=== PATIENT | female | born 1995 ===

== ENCOUNTER 2016-09-16 06:14 | Inpatient (IN) ==
[2016-09-16] MEDS ORDERED: ONDANSETRON 4 MG/2 ML VIAL IV PRN ×2 (06:35→08:59)
[2016-09-16] MEDS ORDERED: MEPERIDINE 50 MG/1 ML VIAL IV PRN (06:35)
[2016-09-16] MEDS ORDERED: MAGNESIUM SULF RIDER 4 GM in PREMIX 1 EACH IV ONE (06:40)
[2016-09-16] MEDS ORDERED: MAGNESIUM SULF RIDER 100 ML IV ONE (06:43)
[2016-09-16] MEDS ORDERED: BETAMETH SODIUM PHOS/ACETATE 30 MG/5 ML VIAL ONE (06:44)
[2016-09-16] MEDS ORDERED: BETAMETH SODIUM PHOS/ACETATE 30 MG/5 ML VIAL IM SCH (07:00)
[2016-09-16] MEDS ORDERED: MAGNESIUM SULF DRIP 40 GM/1,000 ML ML IV SCH (07:00)
[2016-09-16] MEDS ORDERED: CITRIC ACID/SODIUM CITRATE 30 ML UDCUP PO ONE (07:00)
[2016-09-16] MEDS ORDERED: AMPICILLIN INJ 2,000 MG in SODIUM CHLORIDE 0.9% 100 ML IV SCH (07:00)
[2016-09-16] MEDS ORDERED: FAMOTIDINE 20 MG/2 ML VIAL IV ONE (07:00)
[2016-09-16] MEDS ORDERED: LACTATED RINGERS 1,000 ML IV SCH ×2 (07:00→09:00)
[2016-09-16] MEDS ORDERED: CITRIC ACID/SODIUM CITRATE 30 ML UDCUP ONE (07:02)
[2016-09-16] MEDS ORDERED: OXYTOCIN/LR 20 UNIT/1,000 ML BAG IV ONE ×2 (07:03→08:59)
[2016-09-16] MEDS ORDERED: SODIUM CHLORIDE 0.9% 100 ML IV ONE (07:03)
[2016-09-16 07:17] LABS: Basophils % 0.1 % (0.0-0.8); Eosinophils % 0.1 % (0.00-10.9); Hematocrit 26.6 VOL% (35.7-47.0); Hemoglobin 8.3 GM/DL (12.0-16.0); Immature Granulocytes % 0.6 %; Immature Granulocytes Absolute 0.08 #; Lymphocytes # 1.6 10*3/uL (1.4-4.0); Lymphocytes % 11.7 % (21.3-54.2); Mean Corpuscular HGB Conc 31.2 GM/DL (32-36); Mean Corpuscular Hemoglobin 25 PG (27-34); Mean Corpuscular Volume 79.4 FL (87-102); Mean Platelet Volume 10.1 FL (9.6-12.0); Monocytes # 0.9 10*3/uL (0.11-0.8); Monocytes % 6.5 % (1.7-12.7); NRBC # 0.04 10*3/uL; Platelet Count 271 T/CUMM (130-400); Red Blood Count 3.35 MC/CUMM (3.8-5.5); Red Cell Distribution Width 17.6 % (9.3-17.3); White Blood Count 13.5 T/CUMM (4-12)
--- NOTE | 2016-09-16 07:24 | OB/GYN History & Physical ---
History of Present Illness Chief complaint: Labor History of present illness: Ms. Woodruff is a 21 year old female at 31 3/7 weeks with twin gestation who presented to L&D this morning in labor. 7 cm on admission. Given a dose of BMTZ and started Magnesium. Now 8-9 cm. Twins vtx/breech. R/B /A to primary section reviewed. Pt verbalzied understanding and is willing to proceed. Denies medical or surgical history. Home Medications Medication Instructions Recorded Confirmed Type Vit No.124/Iron/Folic 1 tablet PO DAILY 08/27/16 09/16/16 History [ Vitamin Tablet] Allergies Allergy/AdvReac Type Severity Reaction Status Date / Time peanut Allergy Severe ANAPHYLAXIS Verified 08/27/16 16:38 Medical,Surgical,& Family Hx - Medical History Psychological: No history of: Anxiety Disorders, ADHD, Behavior Problems, Bipolar Disorder, Depression, Previous Suicide Attempt, Psychiatric/Substance Abuse Tx, Schizophrenia, Violent Behavior, Psychiatric Problems Musculoskeletal: No history of: Amputation Hematology: History of: Anemia (after delivery) Reproductive: No history of: Ectopic , Complication - Surgical History Thoracic Surgeries: Patient denies;: Lobectomy Neurologic Surgeries: Patient denies: Neurologic Surgery HEENT Surgeries: Patient denies: Eye Surgery, Tonsilectomy & Adenoidectomy Reproductive Surgeries: Patient denies;: Section, Gynecologic Surgery - Family History Family History: Reports;: Family Cancer (mgm), Family Diabetes (mother), Family Hypertension (grandmother), Family Stroke (mgm) Denies;: Family Anesthesia Reaction, Family Psychiatric Problems, Additional Family History - Social History Smoking Status: Never smoker Frequency of Alcohol Use: None Type of Drug Use: None 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 - Constitutional Vitals: Vital Signs Temp Pulse Resp BP Pulse Ox 09/16/16 07:18 99.0 F 118 H 22 128/70 100 09/16/16 06:52 97.5 F L 94 H 22 118/67 99 General appearance: normal weight, no acute distress - Head Head exam: Present: normal inspection, normocephalic - Eye Eye exam: Present: EOMI Pupils: Present: MUNA - Respiratory Respiratory exam: Present: clear to auscultation bilaterally - Cardiovascular Cardiovascular exam: Present: regular rate and rhythm Assessment and Plan (1) 31 weeks gestation of Status: Acute Current Visit: Yes (2) labor in third trimester Status: Acute Assessment and plan: Proceed with primary section Current Visit: Yes (3) Twin gestation in third trimester Status: Acute Current Visit: Yes Results - Labs CBC & BMP: 09/16/16 06:58
[2016-09-16] MEDS ORDERED: PHENYLEPHRINE 1 MG/10 ML SYRINGE IV ONE (07:56)
[2016-09-16] MEDS ORDERED: ONDANSETRON 4 MG/2 ML VIAL ONE (07:56)
[2016-09-16 07:58] LABS: Albumin 2.1 G/DL (3.4-5.0); Bilirubin,Total 0.9 MG/DL (0.2-1.0); Calcium 8.3 MG/DL (8.5-10.1); Osmolality,Calculated 273.5 MOS/KG (273-304); Potassium 3.8 MMOL/L (3.5-5.1); Total Protein 5.4 G/DL (6.4-8.3)
[2016-09-16 07:59] LABS: Apearance,Urine CLEAR (Clear); Bilirubin,Urine Negative (Negative); Blood, Urine Small mg/dL (Negative); Glucose,Urine (UA) Negative (Negative); Ketones,Urine Negative (Negative); Mucus,Urine Occasional /LPF (Occasional); Nitrite,Urine Negative (Negative); Protein,Urine Negative; RBC,Urine 37 /HPF (0-4); Squamous Epithelial Cell,Urine Occasional /HPF (0-10); Urine Color Yellow (Yellow); Urine Specific Gravity 1.012 (1.001-1.035); WBC,Urine 1 /HPF (0-6)
[2016-09-16] MEDS ORDERED: RHO(D) IMMUNE GLOBULIN 300 MCG SYRINGE IM ONE (08:59)
[2016-09-16] MEDS ORDERED: SODIUM CHLORIDE 0.9% 250 ML IV PRN (08:59)
[2016-09-16] MEDS ORDERED: diphenhydrAMINE CAP 50 MG CAPSULE PO ONE (08:59)
--- NOTE | 2016-09-16 09:01 | Anesthesia Post-Op ---
Anesthesia Post OP - Post Ansesthetic Evaluation Patient seen in post op: Yes Resp: within normal limits CV: within normal limits Mental: within normal limits Temp: within normal limits [id number]: within normal limits Nausea and Vomiting: within normal limits Pain: within normal limits
[2016-09-16 09:06] LABS: Cord Arterial Blood HCO3 19.2 MMOL/L
[2016-09-16] MEDS ORDERED: MORPHINE 10 MG/10 ML VIAL ONE (09:06)
[2016-09-16] MEDS ORDERED: fentaNYL 100 MCG/2 ML VIAL ONE (09:06)
[2016-09-16 09:08] LABS: Cord Venous Blood HCO3 20.7 MMOL/L; Cord Venous Blood PO2 45.6
[2016-09-16 09:11] LABS: Cord Arterial Blood HCO3 25.1 MMOL/L
--- NOTE | 2016-09-16 09:11 | Operative Note ---
Pre-op diagnosis: 1. 31 3/7 wks 2. Twin gestation 3. labor Post-op diagnosis: same Procedure: PRIMARY C SECTION Pt was taken to the OR where spinal anesthesia was placed and adequate. Prepped and draped in standard fashion with calderon in her bladder. Incision made 2 FBs above symphysis pubis and carried down to the underlying fascia. Fascia incised in the midline and the incision extended to either side with Rodriguez scissors. Yas clamps placed superiorly and rectus dissected away. Similar procedure inferiorly. Midline entered sharply with Metzenbaum scissors and incision extended bluntly. Geoffrey retractor placed. Bladder flap created sharply. Uterus entered with knife and incision extended bluntly and sharply. Membranes ruptured on Twin A. Delivered vertex. Cord clamped and cut. Handed off to Freight Clerk. Membranes of Twin B ruptured. Delivered in vertex position and handed off to Freight Clerk. Placentas delivered. Uterus cleared of clots and debris. Uterus then closed in 2 layers with 0 vicryl suture, the first running locked, the second imbricated. Normal uterus tubes and ovaries. Twin A 4lbs 7oz APGARS 8/9, Twin B 4lbs 3oz APGARS 8/8. Fascia closed with 2 vicryl sutures from either side to midline. Skin closed with a 4 monocryl. Sponge lap and needle counts correct x 2. Taken to recovery in stable condition. Anesthesia: regional Surgeon / Physician: Radha Baltazar Fireproof Door Maker: Lashawn Omer Estimated blood loss: other (700 CC) Specimens: other (Placenta) Condition: stable Disposition: PACU Results - Labs CBC & BMP: 09/17/16 01:43 09/16/16 06:58 Discharge Plan - Discharge Medications No Action Vit No.124/Iron/Folic [ Vitamin Tablet] 1 tablet PO DAILY - Follow Up or Referral - Forms/Instructions
[2016-09-16 09:12] LABS: Cord Venous Blood HCO3 19.7 MMOL/L; Cord Venous Blood PCO2 49.8 MMHG; Cord Venous Blood PO2 17.7
[2016-09-16] MEDS ORDERED: HYDROmorphone 2 MG/1 ML VIAL ONE (09:36)
[2016-09-16] MEDS: IBUPROFEN 800 MG TABLET PO SCH (17:11)
[2016-09-16] MEDS: HYDROmorphone 2 MG/1 ML VIAL IV PRN ×2 (17:45→21:40)
[2016-09-16] MEDS: DOCUSATE SODIUM 100 MG CAPSULE PO SCH (20:50)
[2016-09-17] MEDS: IBUPROFEN 800 MG TABLET PO SCH ×3 (01:41→17:57)
[2016-09-17 01:56] LABS: Basophils % 0.1 % (0.0-0.8); Hematocrit 25.4 VOL% (35.7-47.0); Hemoglobin 8.1 GM/DL (12.0-16.0); Immature Granulocytes % 0.8 %; Immature Granulocytes Absolute 0.19 #; Lymphocytes # 1.5 10*3/uL (1.4-4.0); Lymphocytes % 6.3 % (21.3-54.2); Mean Corpuscular HGB Conc 31.9 GM/DL (32-36); Mean Corpuscular Hemoglobin 25 PG (27-34); Mean Corpuscular Volume 79.6 FL (87-102); Mean Platelet Volume 10.5 FL (9.6-12.0); Monocytes # 1.1 10*3/uL (0.11-0.8); Monocytes % 4.9 % (1.7-12.7); NRBC # 0.04 10*3/uL; Neutrophils # 20.1 10*3/uL (1.4-7.4); Neutrophils % 87.9 % (38.7-73.9); Platelet Count 217 T/CUMM (130-400); Red Blood Count 3.19 MC/CUMM (3.8-5.5); Red Cell Distribution Width 17.2 % (9.3-17.3); White Blood Count 22.9 T/CUMM (4-12)
[2016-09-17 02:36] LABS: Anisocytosis 1+; Band Neutrophils 4 % (0-10); Lymphocytes 6 % (20-55); Platelet Estimate Normal; Segmented Neutrophils 88 % (50-85); Total Cells Counted 100
[2016-09-17] MEDS: MULTIVITAMIN (PRENATAL) TABLET PO SCH (08:19)
[2016-09-17] MEDS: FERROUS SULFATE 325 MG TABLET PO SCH ×2 (08:19→21:18)
[2016-09-17] MEDS: DOCUSATE SODIUM 100 MG CAPSULE PO SCH ×2 (08:19→21:14)
--- NOTE | 2016-09-17 10:27 | OB/GYN Progress Note ---
Assessment and Plan (1) Status post primary low transverse section Status: Acute Assessment and plan: Initiate routine postop orders. 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 Exam IT NETWORK ARCHITECT - Constitutional Vitals: Vital Signs Temp Pulse Pulse Resp BP BP Pulse Ox 09/17/16 07:26 97.3 F L 63 18 92/48 09/17/16 04:00 97.4 F L 62 22 101/60 09/17/16 00:00 96.9 F L 73 20 106/66 09/16/16 19:30 97.1 F L 80 20 114/65 09/16/16 18:15 97.9 F 78 16 107/46 98 09/16/16 17:02 97.2 F L 74 18 107/66 98 09/16/16 16:02 97.9 F 74 18 115/65 98 09/16/16 16:00 97.9 F 74 18 115/65 09/16/16 15:32 97.9 F 74 20 115/74 98 09/16/16 15:27 97 F L 75 20 115/70 99 09/16/16 15:22 98 F 79 20 122/63 98 09/16/16 15:13 97.9 F 71 20 117/67 97 09/16/16 14:30 98 F 77 20 110/69 09/16/16 11:47 97.5 F L 83 18 120/61 Pulse Ox 09/17/16 07:26 98 09/17/16 04:00 99 09/17/16 00:00 97 09/16/16 19:30 96 09/16/16 18:15 09/16/16 17:02 09/16/16 16:02 09/16/16 16:00 98 09/16/16 15:32 09/16/16 15:27 09/16/16 15:22 09/16/16 15:13 09/16/16 14:30 98 09/16/16 11:47 General appearance: no acute distress - Antepartum / Post Post Exam Breast: bilateral: normal Abdomen obstetrics: Present: bowel sounds normal Vagina: Present: normal moisture, discharge (Right lochia rubra) Uterus exam: Present: enlarged - Gyencological / Post Surgical Post Surgical Exam Lungs: bilateral: normal Chest: Normal S1, Normal S2 Extremities IT NETWORK ARCHITECT: Present: normal Abdomen obstetrics progress note: Present: normal appearance Incision OB: Present: normal, intact - Head Head exam: Present: normal inspection - Respiratory Respiratory exam: Present: clear to auscultation bilaterally - Cardiovascular Cardiovascular exam: Present: regular rate and rhythm - GI/Abdominal GI/Abdominal exam: Present: normal bowel sounds, soft - Extremities Exam Extremities exam: Present: normal inspection - Back Exam Back exam: Present: normal inspection - Neurological Exam Neurological exam: Present: alert, oriented X3 - Psychiatric Psychiatric exam: Present: normal affect, normal mood - Skin Skin exam: Present: normal color, warm Results - Labs CBC & BMP: 09/17/16 01:43 09/16/16 06:58
[2016-09-18] MEDS ORDERED: oxyCODONE/ACETAMINOPHEN 5-325 MG TABLET ONE (07:48)
[2016-09-18] MEDS: IBUPROFEN 800 MG TABLET PO PRN ×2 (07:50→17:50)
[2016-09-18] MEDS: FERROUS SULFATE 325 MG TABLET PO SCH ×2 (07:50→21:33)
[2016-09-18] MEDS: DOCUSATE SODIUM 100 MG CAPSULE PO SCH ×2 (07:50→21:33)
[2016-09-18] MEDS: MULTIVITAMIN (PRENATAL) TABLET PO SCH (07:50)
[2016-09-18] MEDS: oxyCODONE/ACETAMINOPHEN 5-325 MG TABLET PO PRN ×3 (07:50→21:40)
--- NOTE | 2016-09-18 09:52 | OB/GYN Progress Note ---
Assessment and Plan (1) Status post primary low transverse section Status: Acute Assessment and plan: Initiate routine postop orders. 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 Exam FINISH CARPENTER - Constitutional Vitals: Vital Signs Temp Pulse Resp BP Pulse Ox 09/18/16 07:30 97 F L 69 18 101/51 98 09/18/16 05:45 20 09/18/16 03:20 98.6 F 84 20 119/69 99 09/18/16 02:00 18 09/18/16 00:00 96.9 F L 76 20 96/62 99 09/17/16 19:30 97.0 F L 73 18 97/55 97 09/17/16 15:49 97.3 F L 78 20 104/60 98 09/17/16 11:53 97.4 F L 84 20 105/65 98 General appearance: no acute distress - Antepartum / Post Post Exam Breast: bilateral: normal Abdomen obstetrics: Present: bowel sounds normal Vagina: Present: normal moisture, discharge (Light lochia rubra) Uterus exam: Present: enlarged Anus/Rectum: Present: normal perianal skin - Head Head exam: Present: normal inspection - Respiratory Respiratory exam: Present: clear to auscultation bilaterally - Cardiovascular Cardiovascular exam: Present: regular rate and rhythm - GI/Abdominal GI/Abdominal exam: Present: normal bowel sounds, soft - Extremities Exam Extremities exam: Present: normal inspection - Back Exam Back exam: Present: normal inspection - Neurological Exam Neurological exam: Present: alert, oriented X3 - Psychiatric Psychiatric exam: Present: normal affect, normal mood - Skin Skin exam: Present: normal color, warm Results - Labs CBC & BMP: 09/17/16 01:43 09/16/16 06:58
[2016-09-18] MEDS: MAGNESIUM HYDROXIDE SUSP 30 ML UDCUP PO PRN (21:33)
[2016-09-18] MEDS: SIMETHICONE CHEW 80 MG TABLET PO PRN (21:33)
[2016-09-19 07:29] VITALS: BP 124/70
[2016-09-19] MEDS: MULTIVITAMIN (PRENATAL) TABLET PO SCH (08:40)
[2016-09-19] MEDS: SIMETHICONE CHEW 80 MG TABLET PO PRN (08:40)
[2016-09-19] MEDS: MAGNESIUM HYDROXIDE SUSP 30 ML UDCUP PO PRN (08:40)
[2016-09-19] MEDS: DOCUSATE SODIUM 100 MG CAPSULE PO SCH (08:40)
[2016-09-19] MEDS: FERROUS SULFATE 325 MG TABLET PO SCH (08:40)
[2016-09-19] MEDS: oxyCODONE/ACETAMINOPHEN 5-325 MG TABLET PO PRN ×2 (08:41→14:57)
[2016-09-19] MEDS: IBUPROFEN 800 MG TABLET PO PRN (08:41)
--- NOTE | 2016-09-19 09:21 | Discharge Summary ---
Hospital Course - Hospital Course Hospital Course: Ms. Woodruff presented to the labor department in active labor with spontaneous rupture membranes and twin . She subsequently had a section and delivered 2 viable infants with no complications. The infant's are still in the NICU at this time. The patient's incision is well approximated without signs of infection. Her fundus is firm and midline. There are no signs of infection. Her vital signs and lab values are stable. She is voiding without difficulty. Bowel sounds are positive and she has had a normal bowel movement. She will be discharged home prescriptions for pain and a follow-up appointment in our office. Diagnosis - Discharge Diagnosis (1) Status post primary low transverse section Status: Acute Specialty Discharge - Follow Up or Referrals Follow up with: Amina Tenorio MD [Physician] - 2 Weeks Discharge Plan - Discharge Data Disposition: Disch To Home/Self Care Condition at Discharge: Stable Discharge Diet: advance to your usual diet Activity: increase activity as tolerated, no lifting, no prolonged standing Hygiene: may shower Weight Bearing at Discharge: partial weight bearing Driving: not until seen by doctor Contact your physician if you experience:: fever over 101, pain uncontrolled by pain medications - Discharge Medications New Ferrous Sulfate Tab [Feosol Original Tab] 325 mg PO BID #60 tablet oxyCODONE/ACETAMINOPHEN 5-325 [Percocet 5-325] 2 tablet PO Q4H PRN #30 tablet PRN Reason: Pain Moderate (4-7) Ibuprofen Tab [Motrin Tab] 800 mg PO Q8H PRN #30 tablet PRN Reason: Pain Mild To Moderate (1-7) No Action Vit No.124/Iron/Folic [ Vitamin Tablet] 1 tablet PO DAILY - Follow Up or Referral - Forms/Instructions Exam - Constitutional Vitals: Period Temp Pulse Resp BP Sys/Sierra Pulse Ox Last 24 Hr 97 F-98.3 F 65-80 18-18 99-124/50-70 96-98 General appearance: no acute distress - Head Head exam: Present: normal inspection - Neck Neck exam: Present: normal inspection - Respiratory Respiratory exam: Present: clear to auscultation bilaterally - Cardiovascular Cardiovascular exam: Present: regular rate and rhythm - GI/Abdominal GI/Abdominal exam: Present: normal bowel sounds, soft - Extremities Exam Extremities exam: Present: normal inspection - Back Exam Back exam: Present: normal inspection - Neurological Exam Neurological exam: Present: alert, oriented X3 - Psychiatric Psychiatric exam: Present: normal affect, normal mood - Skin Skin exam: Present: normal color, warm DS: Provider Date of admission: 09/16/16 06:35 Primary care physician: Sisi Fregoso MD Attending physician on admission: Radha Baltazar MD Consults: 09/16/16 09:00 Consult to Dinkey Operator [CONS] Routine Consult Dinkey Operator: Breast Feeding Discharging clinician: Laura Miles CNM Expected date of discharge: 09/19/16
--- NOTE | 2016-09-19 13:16 | Pathology Report from [facility] ---
[facility] ACCESSION # : [id number] PATIENT NAME : Gerald Woodruff ORDERING DR : Radha Baltazar MD CLINICAL HX: IUP @ 31.3 wks, delivery, twin gestation, active labor POST-OP DX: Same SPECIMEN INFO: Placenta GROSS DESCRIPTION: The specimen is received fresh labeled GERALD WOODRUFF consists of a twin placenta without designation as to twin A or twin B. Following separation, the placenta designated twin placenta A measures 24.5 x 11.0 x 2.0 cm and weights 340.0 gm. The membranes are pink-barber and translucent. The umbilical cord measures 13.5 cm, contains three vessels and is eccentrically inserted. The surface is blue-mahmood and intact. The maternal surface displays mildly disrupted red-mahmood cotyledons. No abnormalities appreciated upon sectioning. Sections submitted in cassettes: (A ) membranes and cord and (B) and maternal surfaces.Placenta designated B measures 23.5 x 10.5 x 2.3 cm and weights 318.0 gm. The membranes are pink-barber and translucent. The umbilical cord measures 21.0 cm, contains three vessels and is marginally inserted. The surface is blue- mahmood and a few small sub chorionic plaques noted. The maternal surface red- mahmood and is mildly disrupted with no abnormalities appreciated upon sectioning. Sections submitted in cassettes: (C) membranes, cord and (D) and maternal surfaces and (E) divided membrane. DIAGNOSIS FOR GERALD WOODRUFF: Diamniotic dichorionic twin placentas (A & B)PLACENTA A: Focal placental infarction with dystrophic calcification, mild intervillous blood; tri-vessel umbilical cord, eccentrically inserted; membranes with focal chronic inflammation.PLACENTA B: Focal placental infarction, subchorionic fibrin; tri-vessel umbilical cord, marginally inserted; membranes with focal chronic inflammation and attached blood. COLLECTED DATE: 09/17/2016 [facility] REPORT DATE: 09/18/2016 ELECTRONICALLY SIGNED BY: Eladio Frey M.D. 09/18/2016 - 9:52:29 [facility]
== END 2016-09-19 16:00 | disposition home or self-care (01) | DRG 765 ==
LOC: N.LDOUT 06:14 → N.LD 06:15 → N.OB 14:30
PROVIDERS: ADMIT Obstetrics & Gynecology; ATTEND Obstetrics & Gynecology
PROC: LDCSECT (ICD-10-PCS; 2016-09-16 08:00)